=== PATIENT | male | born 1980 | race African-American/Black ===

== ENCOUNTER 2019-09-23 19:25 | Emergency (ER) | payer OTHER ==
[~2019-09-23] VITALS: Ht 177.8 cm; Wt 103.2 kg
[~2019-09-23 19:25] MED LIST: FLEXERIL10 MG PO; NO HOME MEDICATIONS; PERCOCET 325 MG1 TA2 PO; [UNRECOGNIZED DRUG - OTHER] TP
[2019-09-23 19:29] VITALS: BP 128/75; TEMP 97.2
[2019-09-23] MEDS ORDERED: MULTI VITAMINS1 TAB PO (19:40)
[2019-09-23] MEDS ORDERED: FLEXERIL 1010 MG/TAB PO (21:26)
[2019-09-23 21:45] VITALS: PULSE 70
== END 2019-09-23 21:45 | disposition home or self-care (01) ==
LOC: COL.ER 19:25
DX: S39.012A Strain of muscle, fascia and tendon of lower back, initial encounter (principal); M47.897 Other spondylosis, lumbosacral region; R40.2412 Glasgow coma scale score 13-15, at arrival to emergency department; V43.52XA Car driver injured in collision with other type car in traffic accident, initial encounter
CPT/HCPCS: J1885